=== PATIENT | female | born 2000 | race Caucasian/White ===

== ENCOUNTER 2023-12-04 12:47 | Inpatient (IN) | payer OTHER, SELFPAY ==
[2023-12-04 12:49] VITALS: BP 157/108; BMI 26.3
[2023-12-04] MEDS: LR 1000 IV ×2 (13:00→22:45)
[2023-12-04 13:40] LABS: % Basophils 0.2 % (0-2); % Eosinophils 0.3 % (0-6); % Lymphocytes 15.7 % (20.5-51.1); % Monocytes 5.3 % (1.7-9.3); % Neutrophils 77.5 % (42.2-75.2); Absolute Immature Granulocytes 0.1 10^3/uL (0-0.05); Absolute Lymphocytes 1.9 10^3/uL (1.2-3.4); Absolute Monocytes 0.6 10^3/uL (0.1-0.6); Absolute Neutrophils 9.4 10^3/uL (1.4-6.5); Hematocrit 34.3 % (37.0-47.0); Hemoglobin 11.9 g/dL (12.0-16.0); Mean Corp Hgb Conc. 34.7 g/dL (33.0-37.0); Mean Corpuscular Hgb 31.2 pg (27.0-31.0); Mean Platelet Volume 9.8 fL (7.4-10.4); Nucleated Red Blood Cells % 0 %; Platelet Count 298 10^3/uL (130-400); Red Blood Cell Count 3.81 10^6/uL (4.20-5.40); Red Cell Dist. Width 12.9 % (11.5-14.5); Urine Albumin Negative (Neg - Trace); Urine Bilirubin Negative (Negative); Urine Character Slightly Cloudy (Clear); Urine Color Yellow; Urine Glucose Negative (Negative); Urine Ketone Negative (Negative); Urine Leukocyte 1+ (Negative); Urine Nitrite Negative (Negative); Urine Occult Blood Negative (Negative); Urine Urobilinogen Negative (Neg - 1+); White Blood Cell Count 12.2 10^3/uL (4.8-10.8)
[2023-12-04 13:49] LABS: Urine Mucus Few
[2023-12-04 13:50] LABS: Urine Amorphous Seen; Urine Squamous Cell >30 /LPF (Few)
[2023-12-04 13:53] LABS: Urine Bacteria Moderate (Negative); Urine Red Blood Cell 0-2 /HPF (0-2)
[2023-12-04 13:57] LABS: ALT (SGPT) 15 U/L (0-35); AST (SGOT) 19 U/L (14-36); Albumin 3.8 g/dl (3.5-5.0); Alkaline Phosphatase 115 U/L (38-126); Blood Urea Nitrogen 12 mg/dl (7-17); Calcium 9.8 mg/dl (8.4-10.2); Carbon Dioxide 22 mmol/L (22-30); Chloride 105 mmol/L (98-107); Estimated Creatinine Clearance > 125 ml/min; Glucose 69 mg/dl (70-99); Potassium 4.4 mmol/L (3.5-5.1); Sodium 133 mmol/L (135-145); Total Bilirubin 0.5 mg/dl (0.2-1.3); Total Protein 6.9 g/dl (6.3-8.2); eGFR > 60.00
[2023-12-04 14:13] LABS: Protein/creatinine Ratio 0.2; Urine Protein 16 mg/dl
[2023-12-04 15:44] LABS: Amphetamines Negative (Negative); Barbiturates Negative (Negative); Benzodiazepines Negative (Negative); Buprenorphine Negative (Negative); Cocaine Negative (Negative); Methadone Negative (Negative); Methamphetamines Negative (Negative); Opiates Negative (Negative); Phencyclidine Negative (Negative); Tricyclic Antidepressants Negative (Negative)
[2023-12-04 15:45] LABS: Marijuana Positive (Negative)
[2023-12-04] MEDS: STERILE WATER FOR INJECTION 10 ML IV (16:00)
[2023-12-04] MEDS: ROCEPHIN 1000 MG IV (16:01)
[2023-12-04] MEDS: CYTOTEC 25 MICROGRAM VAG (18:22)
[2023-12-04 18:43] LABS: Urine Albumin Negative (Neg - Trace); Urine Bilirubin Negative (Negative); Urine Character Slightly Cloudy (Clear); Urine Color Yellow; Urine Glucose Negative (Negative); Urine Ketone Negative (Negative); Urine Leukocyte 1+ (Negative); Urine Nitrite Negative (Negative); Urine Occult Blood Negative (Negative); Urine Urobilinogen Negative (Neg - 1+)
[2023-12-04 18:51] LABS: Urine Red Blood Cell None Seen /HPF (0-2); Urine Squamous Cell >30 /LPF (Few)
[2023-12-04 18:52] LABS: Urine Bacteria Few (Negative)
[2023-12-04] MEDS: CYTOTEC PO ×4 (19:02→22:06)
[2023-12-04] MEDS: CYTOTEC 25 MICROGRAM PO (20:40)
[2023-12-05] MEDS: SUBLIMAZE 100 MCG EPIDURAL (00:02)
[2023-12-05] MEDS: FENTANYL/BUPIVACAINE 100 EPIDURAL (00:03)
[2023-12-05] MEDS: LR 1000 IV (00:41)
[2023-12-05] MEDS: PITOCIN 30 UNITS/NSS 500 ML IV (01:22)
[2023-12-05] MEDS: TYLENOL 650 MG PO ×2 (09:38→18:37)
[2023-12-05] MEDS: MOTRIN 600 MG PO ×2 (09:38→18:38)
--- NOTE | 2023-12-05 11:49 | CM ---
[employer] met with first time mom Nimo at bedside
Resides at [address] , [place] [address] with her parents Efren and Marcela Alex and siblings Chino and Robbi
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
Mom reports she has named her daughter Mary Kay Kenney
Mom reports that father of baby is Carlos Max. He plans to be involved and resides in [place]
Mom plans to breast feed her infant and states she has all supplies including car seat
Mom is planning to put baby on her insurance and plans to take to [facility] for f/u - she will make appointment
Mom had + UDS for marijuana - 12/03 when in labor
Discussed with Mom + tox screen. Aware that [facility] will be notified of the + screen and that infant can not be discharged until mom and baby are cleared by [facility]
[employer] called Child Line [phone] to report exposure to abused substance during
Spoke with Michelle Urbano
Report taken and [facility] faxed to [phone]
CM will continue to follow family for d/c needs
Baby's discharge is on hold pending [facility] investigation and recommendations
[2023-12-05] MEDS: PRENATAL PLUS 1 TABLET PO (19:53)
[2023-12-06 05:03] LABS: Hematocrit 31.3 % (37.0-47.0); Hemoglobin 10.7 g/dL (12.0-16.0)
[2023-12-06] MEDS: MOTRIN 600 MG PO ×2 (10:03→15:39)
[2023-12-06] MEDS: TYLENOL 650 MG PO ×2 (10:03→15:39)
[2023-12-06] MEDS: PRENATAL PLUS 1 TABLET PO (10:03)
--- NOTE | 2023-12-06 15:08 | CM ---
called [facility] at [phone] to check on status of case
Spoke with [facility]
Per [facility] roving department supervisor was Liza
Case no longer open - mother has a valid medical marijuana card
Case referred to [facility]
Case is closed
Plan - may be d/c'ed to home with mother when medically stable
[2023-12-07] MEDS: MOTRIN 600 MG PO (05:59)
[2023-12-07] MEDS: TYLENOL 650 MG PO (05:59)
[2023-12-07] MEDS: PRENATAL PLUS 1 TABLET PO (07:52)
--- NOTE | 2023-12-07 12:04 | CM ---
CM met with Mom Nimo
Plan is for d/c today for mom and baby
Given info for WIC program - Mom will follow up
Mom reporting good support system and has all supplies
Has ride home
Cleared by [facility]
[2023-12-07 14:27] LABS: Syphilis/T. pallidum Ab Reflex Negative (Negative)
== END 2023-12-07 14:23 | disposition home or self-care (01) | DRG 807 ==
LOC: LDRP 12:47
PROVIDERS: ADMITTING PHYSICIAN Obstetrics & Gynecology
PROC: 3E0P7VZ Introduction of Hormone into Female Reproductive, Via Natural or Artificial Opening (ICD-10-PCS; 2023-12-04)
PROC: 10E0XZZ Delivery of Products of Conception, External Approach (ICD-10-PCS; 2023-12-05)
PROC: 0HQ9XZZ Repair Perineum Skin, External Approach (ICD-10-PCS; 2023-12-05)
DX: O13.4 Gestational [pregnancy-induced] hypertension without significant proteinuria, complicating childbirth (principal); Z37.0 Single live birth; Z3A.39 39 weeks gestation of pregnancy; O70.0 First degree perineal laceration during delivery; H53.9 Unspecified visual disturbance; Z86.19 Personal history of other infectious and parasitic diseases; Z88.0 Allergy status to penicillin; F12.90 Cannabis use, unspecified, uncomplicated; O90.81 Anemia of the puerperium; D64.9 Anemia, unspecified
CPT/HCPCS: 88307; 80053; 80306; 81003; 81015; 82570; 84156; 85014; 85018; 85025; 86780; 86850; 86900; 86901; 87086